=== PATIENT | female | born 1985 | race Caucasian/White ===

== ENCOUNTER 2020-04-26 18:17 | Emergency (ER) | payer BC, MEDICARE, MEDICAID ==
[~2020-04-26] VITALS: Ht 162.6 cm; Wt 59.0 kg
--- NOTE | 2020-04-26 18:17 | NUR ---
ED Nurse Note: Pt brought in by ambulance from home c/o left breast pain x 5 days. Pt had breast augmentation x 5 years ago and has had pain intermittently since then. Respirations even and unlabored on room air. Vitals stable as documented. A+Ox4, speaking in complete sentences.
[2020-04-26 18:29] VITALS: BP 137/84
[2020-04-26] MEDS ORDERED: Ketorolac 30mg Inj IV ONE (18:30)
[2020-04-26] MEDS ORDERED: Methocarbamol 750mg tab ORAL ONE (18:45)
[2020-04-26 18:51] LABS: BASOPHILS % (AUTO) 1.3 % (0.0-2.0); EOSINOPHILS % (AUTO) 1.7 % (0.0-3.0); HEMATOCRIT 42.3 % (37.0-47.0); HEMOGLOBIN 13.8 G/DL (12.0-16.0); LYMPHOCYTES % (AUTO) 27.3 % (20.0-45.0); MEAN CORPUSCULAR VOLUME 96 FL (80-99); NEUTROPHILS % (AUTO) 62.7 % (45.0-75.0); PLATELET COUNT 285 K/UL (150-450); RED BLOOD COUNT 4.41 M/UL (4.20-5.40); RED CELL DISTRIBUTION WIDTH 12.5 % (11.6-14.8)
[2020-04-26 18:52] LABS: APPEARANCE,URINE CLEAR; BILIRUBIN, URINE NEGATIVE (NEGATIVE); COLOR,URINE PALE YELLOW; GLUCOSE, URINE (UA) NEGATIVE (NEGATIVE); KETONES,URINE NEGATIVE (NEGATIVE); LEUKOCYTE ESTERASE ,URINE NEGATIVE (NEGATIVE); NITRITE,URINE NEGATIVE (NEGATIVE); PH,URINE 8 (4.5-8.0); PROTEIN,URINE NEGATIVE (NEGATIVE); UROBILINOGEN,URINE NORMAL MG/DL (0.0-1.0)
[2020-04-26 19:03] LABS: ANION GAP 8 mmol/L (5-15); BLOOD UREA NITROGEN 7 mg/dL (7-18); CALCIUM 8.6 MG/DL (8.5-10.1); CARBON DIOXIDE 29 MMOL/L (21-32); CHLORIDE 99 MMOL/L (98-107); CREATININE 0.8 MG/DL (0.55-1.30); POTASSIUM 4.4 MMOL/L (3.5-5.1); SODIUM 136 MMOL/L (136-145)
[2020-04-26 19:08] LABS: ALANINE AMINOTRANSFERASE 34 U/L (12-78); ALBUMIN 3.9 G/DL (3.4-5.0); ALBUMIN/GLOBULIN RATIO 1.1 (1.0-2.7); ALKALINE PHOSPHATASE 97 U/L (46-116); ASPARTATE AMINO TRANSFERASE 17 U/L (15-37); BILIRUBIN,TOTAL 0.4 MG/DL (0.2-1.0)
--- NOTE | 2020-04-26 19:12 | NUR ---
HAND-OFF: Report given to INDIO Dumont. Pt in stable condition; plan of care endorsed.
[2020-04-26] MEDS ORDERED: Ketorolac 30mg Inj IM ONE (19:45)
--- NOTE | 2020-04-26 20:27 | Diagnostic Imaging Report ---
EXAM: CT Chest Without Intravenous Contrast CLINICAL HISTORY: Chest pain. TECHNIQUE: Axial computed tomography images of the chest without intravenous contrast. CTDI is 3.3 mGy and DLP is 134.1 mGy-cm. One or more of the following dose reduction techniques were used: automated exposure control, adjustment of the mA and/or kV according to patient size, use of iterative reconstruction technique. COMPARISON: No previous study. FINDINGS: Lungs: Evaluation of the right pulmonary parenchyma reveals no significant focal abnormalities. Evaluation of the left pulmonary parenchyma reveals very minimal subsegmental atelectasis posteriorly. The airway is patent. Pleural space: Unremarkable. No pneumothorax. No significant effusion. Heart: Heart is normal in size. No significant pericardial effusion. Mediastinum: Small hiatal hernia and possible distal esophagitis. Thyroid: Thyroid gland is unremarkable. Bones/joints: The clavicles are unremarkable. The ribs are unremarkable. 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 Normal alignment of the thoracic spine. The sternum is unremarkable. No acute fracture. Soft tissues: Bilateral breast prosthesis are noted in place. Vasculature: Unremarkable. No thoracic aortic aneurysm. Lymph nodes: Unremarkable. No enlarged lymph nodes. IMPRESSION: 1. No significant pulmonary parenchymal abnormalities. 2. Hiatal hernia and possible distal esophagitis.
--- NOTE | 2020-04-26 20:30 | Emergency Room Report ---
History of Present Illness General Chief Complaint: Pain Source: Patient Present Illness HPI 34-year-old female with history of gastritis currently taking omeprazole and status post breast augmentation x5 years brought in by paramedics due to exacerbation of left breast pain x5 days. Patient rates the pain 10 out of 10. Denies any pus drainage or recent injury. Has taken [place] and [place] for pain relief. Has not seen her surgeon in a long time. Denies generalized chest pain, shortness of breath, headache and dizziness. Ports the pain is worse with movement. Also complains of acid reflux. Denies nausea vomiting. Denies tobacco use drug use and alcohol intake. Denies . She is afebrile Allergies: Coded Allergies: No Known Allergies (Unverified , 04/26/20) COVID-19 Screening Contact w/high risk pt: No Experienced COVID-19 symptoms?: No COVID-19 Testing performed [employer] TESTER: No Patient History Past Medical History: see triage record Past Surgical History: none Pertinent Family History: none Last Menstrual Period: 2 months ago Now: No Immunizations: UTD Reviewed Nursing Documentation: PMH: Agreed; PSxH: Agreed Review of Systems All Other Systems: negative except mentioned in HPI Physical Exam Vital Signs Date Time Temp Pulse Resp B/P (MAP) Pulse Ox O2 Delivery O2 Flow Rate FiO2 04/26/20 18:13 98.6 96 16 140/90 (107) 98 Room Air Sp02 EP Interpretation: reviewed, normal General Appearance: no apparent distress, alert, GCS 15, non-toxic Head: normocephalic, atraumatic Eyes: bilateral eye normal inspection, bilateral eye PERRL ENT: hearing grossly normal, no angioedema, normal voice Neck: full range of motion, supple/symm/no masses Respiratory: chest non-tender, lungs clear, normal breath sounds, no retraction, speaking full sentences Cardiovascular #1: normal inspection, regular rate, rhythm Gastrointestinal: non tender, soft, no bruit, mass - Mobile mass multiple noted left breast Genitourinary: no CVA tenderness Musculoskeletal: back normal Neurologic: alert, motor strength/tone normal, oriented x3, sensory intact, responsive, speech normal Psychiatric: judgement/insight normal, memory normal, mood/affect normal, no suicidal/homicidal ideation Skin: no rash Lymphatic: no adenopathy Medical Decision Making PA Attestation All diagnosis and treatment plans were discussed and reviewed by my supervising physician Dr. De Anda Diagnostic Impression: Primary Impression: Hiatal hernia Additional Impressions: Esophagitis Breast pain ER Course 34-year-old female with history of gastritis currently taking omeprazole and status post breast augmentation x5 years brought in by paramedics due to exacerbation of left breast pain x5 days. Patient rates the pain 10 out of 10. Denies any pus drainage or recent injury. Has taken [place] and [place] for pain relief. Has not seen her surgeon in a long time. Denies generalized chest pain, shortness of breath, headache and dizziness. Ports the pain is worse with movement. Also complains of acid reflux. Denies nausea vomiting. Denies tobacco use drug use and alcohol intake. Denies . She is afebrile Ddx considered but are not limited to : Cellulitis, postsurgical adhesions, superficial infection, abscess Vital signs: are WNL, pt. is afebrile H&PE are most consistent with: Breast mass, hiatal hernia, esophagitis ORDERS: CT chest no contrast, CBC, CMP, Pepcid, Naprosyn ED INTERVENTIONS: Toradol, Robaxin DISCHARGE: At this time pt. is stable for d/c to home. Will provide printed patient care instructions, and any necessary prescriptions. Care plan and follow up instructions have been discussed with the patient prior to discharge. Take medication as directed, follow-up primary care provider and follow-up with plastic surgeon for ultrasound of breath and possible biopsy, if worsening symptoms return to the emergency room CT/MRI/US Diagnostic Results CT/MRI/US Diagnostic Results : Imaging Test Ordered: CT chest no contrast Impression TECHNIQUE: Axial computed tomography images of the chest without intravenous contrast. CTDI is 3.3 mGy and DLP is 134.1 mGy-cm. One or more of the following dose reduction techniques were used: automated exposure control, adjustment of the mA and/or kV according to patient size, use of iterative reconstruction technique. COMPARISON: No previous study. FINDINGS: Lungs: Evaluation of the right pulmonary parenchyma reveals no significant focal abnormalities. Evaluation of the left pulmonary parenchyma reveals very minimal subsegmental atelectasis posteriorly. The airway is patent. Pleural space: Unremarkable. No pneumothorax. No significant effusion. Heart: Heart is normal in size. No significant pericardial effusion. Mediastinum: Small hiatal hernia and possible distal esophagitis. Thyroid: Thyroid gland is unremarkable. Bones/joints: The clavicles are unremarkable. The ribs are unremarkable. 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 Normal alignment of the thoracic spine. The sternum is unremarkable. No acute fracture. Soft tissues: Bilateral breast prosthesis are noted in place. Vasculature: Unremarkable. No thoracic aortic aneurysm. Lymph nodes: Unremarkable. No enlarged lymph nodes. IMPRESSION: 1. No significant pulmonary parenchymal abnormalities. 2. Hiatal hernia and possible distal esophagitis. Last Vital Signs Date Time Temp Pulse Resp B/P (MAP) Pulse Ox O2 Delivery O2 Flow Rate FiO2 04/26/20 18:29 98.4 88 18 137/84 99 Room Air Disposition: HOME, SELF-CARE Condition: Stable Scripts Famotidine* (Pepcid 20mg tablet*) 20 Mg Tablet 20 MG ORAL DAILY for Gerd, #30 TAB 0 Refills Prov: Bonnie Odell 04/26/20 Naproxen* (NAPROXEN*) 500 Mg Tablet 500 MG ORAL TWICE A DAY, #30 TAB Prov: Bonnie Odell 04/26/20 Referrals: NOT CHOSEN IPA/,REFERRING (PCP) Patient Instructions: Breast Augmentation, Care After, Esophagitis, Hiatal Hernia Additional Instructions: Take medication as directed, follow-up with plastic surgeon, you need an ultrasound of breast, also follow-up with web graphic designer, if worsening symptoms return to the emergency room Bonnie Odell Apr 26, 2020 20:30
[2020-04-26] MEDS ORDERED: NAPROXEN500 M2 ORAL (20:31)
[2020-04-26] MEDS ORDERED: FAMOTIDINE20 MG ORAL (20:31)
--- NOTE | 2020-04-26 20:49 | NUR ---
ER DISCHARGE NOTE: Patient is cleared to be discharged per ERMD, pt is aox4, on room air, with stable vital signs. pt was given dc and prescription instructions, pt was able to verbalize understanding, pt id band and iv site removed without complications. pt is able to ambulate with steady gait. pt took all belongings.
[2020-04-26 21:00] VITALS: BP 132/78
== END 2020-04-26 20:49 | disposition home or self-care (01) ==
LOC: EDBD 18:17 → EMR 18:57
DX: K44.9 Diaphragmatic hernia without obstruction or gangrene (principal); K20.90 Esophagitis, unspecified without bleeding; N64.4 Mastodynia; R07.9 Chest pain, unspecified
CPT/HCPCS: 36415; 71250; 80053; 80307; 81003; 81025; 85025; 96372; 96374; 99284